=== PATIENT | female | born 1940 | race Caucasian/White ===

== ENCOUNTER → 2020-08-19 | Outpatient (CLI) | payer MEDICARE ==
[~2020-08-19] MED LIST: ALPR0.5T72; ASPI-84; ESTR0.755; LVT.05T; MEDR5TAB4; MELO-195; PARO40TA2; SIMV40TA2
--- NOTE | 2020-08-19 10:55 | Diagnostic Imaging Report ---
Clinical indications: Patient having memory problems. Exam: MRI of the brain performed without IV contrast. Sequences include axial DWI, ADC map, axial T2, axial FLAIR, axial T1, axial gradient echo, and sagittal T1. Comparison: None. Findings: There is no evidence of acute cerebral infarct, intracranial hemorrhage, or gross mass effect. There is brain parenchymal volume loss. 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 There is normal [place]-white matter distinction. There is no significant midline shift or herniation. The [place] vascular structures show no gross abnormality as visualized. The pituitary gland, sella, and suprasellar regions are unremarkable as visualized. There is no evidence of hydrocephalus. The basal cisterns are unremarkable. The skull, extracranial soft tissue, and orbits are unremarkable. There is minimal mucosal thickening involving ethmoid sinus. Temporal bones show no significant abnormality. IMPRESSION: 1: There is no evidence of acute intracranial process. 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 Dictated by: Dictated on workstation # [id number]
== END ==
LOC: RAD 10:15
PROVIDERS: ATTEND Internal Medicine
DX: G31.9 Degenerative disease of nervous system, unspecified (principal); I67.82 Cerebral ischemia; I67.81 Acute cerebrovascular insufficiency
CPT/HCPCS: 70551

== ENCOUNTER 2020-09-05 08:06 | Outpatient (CLI) | payer MEDICARE ==
[~2020-09-05] VITALS: Ht 177.8 cm; Wt 88.6 kg
[2020-09-05 08:00] VITALS: BP 131/63
[2020-09-05] MEDS ORDERED: diphenhydrAMINE 50 MG/ML INJ (BENADRYL) IV PRN (08:15)
[2020-09-05] MEDS ORDERED: BAMLANIVIMAB (NON FORM) 700 MG in NS (IVPB) 100 ML IV ONE (08:15)
[2020-09-05] MEDS ORDERED: EPINEPHrine INJECTION 1 MG/ML AMP IM PRN (08:15)
[2020-09-05 09:35] VITALS: BP 156/78
== END 2020-09-05 10:10 | disposition home or self-care (01) ==
LOC: INFUSION 08:06
PROVIDERS: ATTEND Nurse Practitioner Family
DX: Z23 Encounter for immunization (principal); U07.1 COVID-19

== ENCOUNTER → 2021-04-10 | Outpatient (CLI) | payer MEDICARE ==
--- NOTE | 2021-04-10 17:35 | Diagnostic Imaging Report ---
PROCEDURE: Pelvic comp/transvaginal sonogram. TECHNIQUE: Complete transabdominal and transvaginal pelvic ultrasound was performed. In addition, limited pelvic Doppler was performed. INDICATION: Postmenopausal bleeding. Uterus measures 9.1 x 4.6 x 6.1 cm. Endometrium measures 11 mm in thickness, thick for a postmenopausal patient. Uterine myometrium is heterogeneous but no discrete mass is identified. The right and left ovaries cannot be visualized. No adnexal mass or free fluid is detected. There are cervical nabothian cysts. IMPRESSION: There is some endometrial thickening for a patient this age. No other significant abnormality is seen. Dictated by: Dictated on workstation # [id number]
== END ==
LOC: RAD 14:18
PROVIDERS: ATTEND Nurse Practitioner
DX: N95.0 Postmenopausal bleeding (principal); R93.89 Abnormal findings on diagnostic imaging of other specified body structures
CPT/HCPCS: 76830; 76856

== ENCOUNTER 2021-05-12 05:46 | Outpatient (CLI) | payer MEDICARE ==
[~2021-05-12] VITALS: Ht 170.2 cm; Wt 82.7 kg
[2021-05-12] MEDS ORDERED: ESCI20TA39 PO (13:25)
[2021-05-12] MEDS ORDERED: LEVO100T7 PO (13:25)
[2021-05-12] MEDS ORDERED: ALPR0.5T7 PO (13:25)
== END 2021-05-12 13:44 | disposition home or self-care (01) ==
LOC: PREOP 05:46
PROVIDERS: ATTEND Obstetrics & Gynecology
DX: Z01.818 Encounter for other preprocedural examination (principal)

== ENCOUNTER 2021-05-19 09:53 | Day surgery (SDC) | payer MEDICARE ==
[~2021-05-19] VITALS: Ht 170.2 cm; Wt 82.7 kg
[2021-05-19] VITALS (9 sets, daily range): BP systolic 121–157; BP diastolic 83–97
[~2021-05-19 09:53] MED LIST changes: +ALPR0.5T7 PO; +ESCI20TA39 PO; +LEVO100T7 PO
--- NOTE | 2021-05-19 10:22 | Progress Note-Pre Operative ---
Pre-Operative Progress Note H&P Reviewed The H&P was reviewed, patient examined and no changes noted. Date Seen by Provider: May 19, 2021 Time Seen by Provider: 10:20 Date H&P Reviewed: May 19, 2021 Time H&P Reviewed: 10:20 Pre-Operative Diagnosis: thickened endometrium, post menopausal bleeding DILLAN VIRK DO May 19, 2021 10:22
[2021-05-19] MEDS ORDERED: LACTATED RINGERS 1,000 ML IV PRN (10:30)
[2021-05-19] MEDS ORDERED: ceFAZolin 2 GM IV Premixed 50 ML IV ONE (10:30)
[2021-05-19] MEDS ORDERED: proPOfol 200 MG/20 ML (DIPRIVAN) VIAL IV ONE (10:37)
[2021-05-19] MEDS ORDERED: SEVOFLURANE (ULTANE) 15 ML INHAL SOLN ONE ×2 (10:37→12:23)
[2021-05-19] MEDS ORDERED: LIDOCAINE PF 2% 5 ML (XYLOCAINE) VIAL ONE (10:37)
[2021-05-19] MEDS ORDERED: ONDANSETRON 4 MG/2 ML (SDV) Z0FRAN ONE (10:37)
[2021-05-19] MEDS ORDERED: fentaNYL INJ 100 MCG/2 ML AMP ONE (10:38)
[2021-05-19] MEDS ORDERED: MIDAZOLAM 2 MG/2 ML (VERSED) VIAL ONE (10:38)
[2021-05-19] MEDS ORDERED: KETOROLAC 30 MG/ML VIAL ONE (12:19)
--- NOTE | 2021-05-19 12:27 | Progress Note ---
Progress Note Assessment/Plan Date Seen by Provider: May 19, 2021 Time Seen by Provider: 10:20 Events since last exam Patient presents for surgery. She has a history of an episode of post menopausal bleeding after starting some vaginal estrogen. cream Endometrial biopsy showed polypoid tissue and US showed a thickened lining. She presents for hysteroscopy, dilation and curettage today. Risks of procedure, including but not limited to Bleeding infection injury to bowel bladder and ureter. There are also risks associated with anesthesia. With the assistance of her caregiver, these risks and the procedure were discussed. The patient expresses understanding. Proper consents were signed. We will use prophylactic antibiotics and SCDs. Assessment/Plan see above Vitals Last set of Vitals Signs Vital Signs Date Time Temp Pulse Resp B/P (MAP) Pulse Ox O2 Delivery O2 Flow Rate FiO2 05/19/21 10:00 36.4 66 18 121/97 (105) 95 Room Air Focused Exam Respiratory: Chest Non Tender, Lungs Clear, Normal Breath Sounds Cardiovascular: Regular Rate, Rhythm DILLAN VIRK DO May 19, 2021 12:27
--- NOTE | 2021-05-19 12:33 | Operative Report ---
Operative Report Date of Procedure/Surgery May 19, 2021 Surgeon (s) DILLAN VIRK DO Engineering Documentation Specialist (s): NA Post-Operative Diagnosis Postmenopausal bleeding. Thickened endometrium Procedure Performed Hysteroscopy, dilation and curettage Description of Procedure Anesthesia Type: General Estimated blood loss (mL): Minimal Specimen(s) collected/removed Endometrial curettings Description of the Procedure . With informed consent the patient was taken to the operating room where general anesthetic was found to be adequate. She was then prepped and draped in the usual sterile fashion in the dorsal lithotomy position. The bladder was drained of clear yellow urine with a straight catheter. She was then placed in the dorsolithotomy position and a speculum was placed in the vagina. 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 The cervix was stenotic. It was grasped with a tenaculum and then I attempted a small dilator was unable to insert this. I then took a scalpel and inserted this through the external cervical os which allowed entry into the cervix. The cervix was then dilated gently with Darius dilators up to 18 Ethiopian. I then inserted the hysteroscopy scope and revealed the above-mentioned findings. I then did a gentle curettage removing the polypoid tissue and follow this up with the hysteroscope revealing that there was no evidence of any additional polypoid tissue noted. The instruments were removed from the cervix and the vagina. There was minimal bleeding from the tenaculum site and this was controlled with pressure. The patient was awakened and taken to recovery room in a stable condition. Sponge needle and instrument counts were correct x2. Findings of the Procedure Atrophic endometrium with one area of polypoid tissue noted Allergies and Home Medications Allergies Coded Allergies: No Known Drug Allergies (Verified , 05/28/09) Patient Home Medication List Home Medication List Reviewed: Yes Alprazolam (Alprazolam) 0.5 Mg Tablet, 0.5 MG PO DAILY PRN for ANXIETY, (Reported) Entered as Reported by: OLAYINKA LEIGH on 05/12/211324 Last Action: Last Taken Edited Escitalopram Oxalate (Escitalopram Oxalate) 20 Mg Tablet, 20 MG PO HS, (Reported) Entered as Reported by: OLAYINKA LEIGH on 05/12/211324 Last Action: Last Taken Edited Levothyroxine Sodium (Levothyroxine Sodium) 100 Mcg Tablet, 100 MCG PO DAILY, (Reported) Entered as Reported by: OLAYINKA LEIGH on 05/12/21 1325 Last Action: Last Taken Edited Discontinued Medications Aspirin (Rod) 81 Mg Tablet., (Reported) Discontinued Reason: No Longer Taking Entered as Reported by: MIRTA HERNÁNDEZ on 05/27/09 1332 Estropipate (Estropipate) 0.75 Mg Tablet, (Reported) Discontinued Reason: No Longer Taking Entered as Reported by: MIRTA HERNÁNDEZ on 05/27/09 1333 Levothyroxine Sodium (Levothroid) 50 Mcg Tab, (Reported) Discontinued Reason: Prescription changed Entered as Reported by: MIRTA HERNÁNDEZ on 05/27/09 1334 Medroxyprogesterone Acetate (Medroxyprogesterone Acetatae) 5 Mg Tablet, (Reported) Discontinued Reason: No Longer Taking Entered as Reported by: MIRTA HERNÁNDEZ on 05/27/09 1333 Meloxicam (Meloxicam) 15 Mg Tablet, (Reported) Discontinued Reason: No Longer Taking Entered as Reported by: MIRTA HERNÁNDEZ on 05/27/09 1334 Paroxetine Hcl (Paroxetine Hcl) 40 Mg Tablet, (Reported) Discontinued Reason: No Longer Taking Entered as Reported by: MIRTA HERNÁNDEZ on 05/27/09 1334 Simvastatin (Zocor) 40 Mg Tablet, (Reported) Discontinued Reason: No Longer Taking Entered as Reported by: MIRTA HERNÁNDEZ on 05/27/09 1334 Copy Copies To 1: RADHA MATIAS ANGELA C DO May 19, 2021 12:33
[2021-05-19] MEDS ORDERED: ACET-93 PO (12:35)
[2021-05-19] MEDS ORDERED: IBUP-1773 PO (12:35)
--- NOTE | 2021-05-19 12:37 | Discharge Inst-Women's Service ---
Discharge Inst-Women's Serv Depart Medication/Instructions New, Converted or Re-Newed RX: Transmitted to Pharmacy Instructions expect light bleeding/ spotting for up to 1 week, cramping may occur for a few days Final Diagnosis endometrial polyp post menopausal bleeding Consults/Follow Up Additional Follow Up: Yes (1-2 weeks for pathology review) Activity Activity: Activity as Tolerated Driving Instructions: No Driving for 24 Hours NO SMOKING: NO SMOKING Nothing Inside Vagina: No Douching, No Alianza, No Tampons Diet Discharge Diet: No Restrictions Symptoms to Report to DrIron: Bleeding Excessive, Pain Increased, Fever Over 101 Degrees F, Vaginal Bleeding Increase, Vaginal Discharge DILLAN Mcintosh DO May 19, 2021 12:37
[2021-05-19] MEDS ORDERED: ONDANSETRON 4 MG/2 ML (SDV) Z0FRAN IVP PRN (12:45)
[2021-05-19] MEDS ORDERED: morphine INJ 10 MG/ML 1ML (SYR OR VIAL) IVP ONE (12:45)
[2021-05-19] MEDS ORDERED: KETOROLAC 15 MG/ML VIAL IVP ONE (12:45)
--- NOTE | 2021-05-19 14:32 | Anesthesia-General Post-Op ---
General Patient Condition Mental Status/LOC: Same as Preop Cardiovascular: Satisfactory Nausea/Vomiting: Absent Respiratory: Satisfactory Pain: Controlled Complications: Absent Post Op Complications Complications None Follow Up Care/Instructions Patient Instructions None needed. Anesthesia/Patient Condition Patient Condition Patient was doing well after the procedure and had no complaints, stable vital signs, no apparent adverse anesthesia problems. FREDDIE CARRILLO DO May 19, 2021 14:32
== END 2021-05-19 14:38 | disposition home or self-care (01) ==
LOC: SDC 09:53
PROVIDERS: ATTEND Obstetrics & Gynecology
DX: N95.0 Postmenopausal bleeding (principal); R93.89 Abnormal findings on diagnostic imaging of other specified body structures; Z79.899 Other long term (current) drug therapy; Z79.890 Hormone replacement therapy
CPT/HCPCS: 87081